=== PATIENT | female | born 1990 | race Caucasian/White ===

== ENCOUNTER 2022-04-23 10:17 | Emergency (ER) | payer SELFPAY ==
[~2022-04-23] VITALS: Ht 162.6 cm; Wt 49.9 kg
[2022-04-23 10:20] VITALS: BP 108/79
--- NOTE | 2022-04-23 10:45 | NUR ---
POSTERIOR R PINKY KNUCKLE. WOUND IRRIGATED WITH NORMAL SALINE + BETADINE SOLUTION. + CMS. BANDAID PLACED.
--- NOTE | 2022-04-23 11:42 | NUR ---
PATIENT [facility] [employer] DEPT. PATIENT EXAMINED BY DR. GARCIA. PATIENT MEDICALLY CLEARED AND RELEASED IN CUSTODY IN STABLE CONDITION. ORIGINAL PRE-BOOK FORM GIVEN TO OFFICER VIRGILIO #[id number].
== END 2022-04-23 11:42 ==
LOC: MED 10:17
DX: S60.511A Abrasion of right hand, initial encounter (principal); S00.81XA Abrasion of other part of head, initial encounter; X58.XXXA Exposure to other specified factors, initial encounter; Y93.89 Activity, other specified; Y92.89 Other specified places as the place of occurrence of the external cause; Y99.8 Other external cause status
CPT/HCPCS: 73120; 99283